=== PATIENT | female | born 2000 | race Caucasian/White ===

== ENCOUNTER 2020-09-13 21:10 | Emergency (ER) | payer SELFPAY ==
--- NOTE | 2020-09-13 21:43 | ER Document Report ---
ED Medical Screen (RME) - General Chief Complaint: Weakness Stated Complaint: WEAKNESS Time Seen by Provider: 09/13/20 21:33 Mode of Arrival: Ambulatory Information source: Patient Notes: HPI; 19-year-old female past medical history significant for anorexia, bulimia, seizure disorder presents to the emergency room complaining of inability to move her extremities with mild confusion that started around 7 PM this evening. Patient states she was alone at the time her symptoms lasted about an hour and a half was able to call a family member who stayed on the phone until her boyfriend got home from work. Patient does not think that she had a seizure but she was alone at the time. Not on any seizure medications. She was not incontinent of urine. Not postictal. No head trauma or head injury. Denies any slurred speech, general weakness or any other symptoms. PE: Alert and oriented x3. Negative fast exam. Lungs: Clear to auscultation without rales, rhonchi, wheezes. Heart: Regular rate rhythm without murmurs, rubs, gallops. I have greeted and performed a rapid initial assessment of this patient. A comprehensive ED assessment and evaluation of the patient, analysis of test results and completion of the medical decision making process will be conducted by additional ED providers. I have specifically instructed the patient or family members with the patient to immediately return to any nursing staff should anything change in the patient's condition or with their chief complaint. TRAVEL OUTSIDE OF THE [place] IN LAST 30 DAYS: No Physical Exam - Vital signs Vitals: Temp Pulse Resp BP Pulse Ox 97.5 F 60 13 102/64 100 09/13/20 21:24 09/13/20 21:24 09/13/20 21:24 09/13/20 21:24 09/13/20 21:24 Course - Vital Signs Vital signs: Temp Pulse Resp BP Pulse Ox 97.5 F 60 13 102/64 100 09/13/20 21:24 09/13/20 21:24 09/13/20 21:24 09/13/20 21:24 09/13/20 21:24
--- NOTE | 2020-09-13 22:19 | RADIOLOGY REPORT (SQ) ---
EXAM DESCRIPTION: CT HEAD WITHOUT IV CONTRAST COMPLETED DATE/TME: 09/13/2020 21:51 CLINICAL HISTORY: 19 years, Female, confusion COMPARISON: None. TECHNIQUE: Axial images without IV contrast. Sagittal coronal reconstruction. Images stored on PACS. All CT scanners at this facility use dose modulation, iterative reconstruction, and/or weight based dosing when appropriate to reduce radiation dose to as low as reasonably achievable (ALARA). FINDINGS: Normal size ventricles. No suspicious acute intra-axial or extra-axial abnormality. Pituitary gland is not enlarged. Paranasal sinuses without acute findings. Unerupted molar teeth bilaterally. Mastoid air cells and bony calvarium are unremarkable. IMPRESSION: 1. Unremarkable intracranial CT. 2. Suspected unerupted molar teeth bilaterally.
[2020-09-13 23:05] LABS: ABSOLUTE EOSINOPHILS # (AUTO) 0.2 10^3/uL (0.0-0.6); ABSOLUTE LYMPHOCYTES (AUTO) 2.5 10^3/uL (0.5-4.7); ABSOLUTE MONOCYTES (AUTO) 0.3 10^3/uL (0.1-1.4); ABSOLUTE NEUT (AUTO) 2.5 10^3/uL (1.7-8.2); EOSINOPHILS % (AUTO) 3.1 % (0-6); HEMATOCRIT 39.6 % (36.0-47.0); HEMOGLOBIN 13.9 g/dL (12.0-15.5); LYMPHOCYTES % (AUTO) 45.3 % (13-45); MEAN CORPUSCULAR HEMOGLOBIN 32.6 pg (27.0-33.4); MEAN CORPUSCULAR HGB CONC 35.2 g/dL (32.0-36.0); MEAN CORPUSCULAR VOLUME 93 fl (80-97); MONOCYTES % (AUTO) 5.8 % (3-13); PLATELET COUNT 251 10^3/uL (150-450); RED BLOOD COUNT 4.28 10^6/uL (3.72-5.28); RED CELL DISTRIBUTION WIDTH 12.9 % (11.5-14.0); SEGMENTED NEUTROPHILS % (AUTO) 45.8 % (42-78); TOTAL CELLS COUNTED % (AUTO) 100 %; WHITE BLOOD COUNT 5.6 10^3/uL (4.0-10.5)
[2020-09-13 23:26] LABS: ALBUMIN 4.6 g/dL (3.5-5.0); ALKALINE PHOSPHATASE 35 U/L (38-126); ANION GAP 6 (5-19); ASPARTATE AMINO TRANSFERASE 24 U/L (14-36); BLOOD UREA NITROGEN 11 mg/dL (7-20); CALCIUM 10.2 mg/dL (8.4-10.2); CARBON DIOXIDE 32 mmol/L (22-30); CHLORIDE 100 mmol/L (98-107); GLUCOSE 88 mg/dL (75-110); POTASSIUM 4.5 mmol/L (3.6-5.0); TOTAL PROTEIN 7.2 g/dL (6.3-8.2)
--- NOTE | 2020-09-13 23:37 | EKG REPORT ---
SEVERITY:- NORMAL ECG - SINUS RHYTHM : Confirmed by: Nathaly Mckinnon 13-Sep-2020 23:36:52
[2020-09-14 05:54] VITALS: BP 90/58
--- NOTE | 2020-09-14 05:55 | ER Document Report ---
ED General - General Chief Complaint: General Weakness Stated Complaint: WEAKNESS Time Seen by Provider: 09/13/20 21:33 Primary Care Provider: [facility] [Provider Group] - Follow up as needed [facility] [Provider Group] - Follow up as needed [facility] [Provider Group] - Follow up as needed [facility] [Provider Group] - Follow up as needed [facility] [Provider Group] - Follow up as needed Mode of Arrival: Ambulatory Information source: Patient Notes: 19-year-old female presented to ED for complaint of having trouble grabbing her pencil or pen for about an hour and a half around 7 PM. She states she was alone at the time and they lasted about an hour and a half and she was able to talk to her mother on the telephone the entire time. She states she had a telephone on the counter while she was talking to her mother. Patient is states that she has had seizures in the past but she did not lose consciousness and she was not incontinent I was able to talk throughout the whole episode. She states she does have a history of seizures that were caused by her anorexia and bulimia. She states she is not having any weakness or any trouble at this time. She is alert oriented able to move all extremities well able to walk with no difficulty. She states this lasted for about an hour and a half and has had no episodes since. Constitutional: Negative for fever. HENT: Negative for sore throat. Eyes: Negative for visual changes. Cardiovascular: Negative for chest pain. Respiratory: Negative for shortness of breath. Gastrointestinal: Negative for abdominal pain, vomiting or diarrhea. Genitourinary: Negative for dysuria. Musculoskeletal: Negative for back pain. Skin: Negative for rash. Neurological: Negative for headaches, weakness or numbness. 10 point ROS negative except as marked above and in HPI. VITAL SIGNS: Within normal limits. GENERAL: Very malnourished female HEAD: Normal with no signs of head trauma. EYES: PERRLA, EOMI, conjunctiva normal, no discharge. EARS: Hearing grossly intact. NOSE: Normal. THROAT: Oropharynx is normal. NECK: Normal range of motion, no tenderness, supple, no lymphadenopathy, No adenopathy, no JVD. CHEST: Clear breath sounds bilaterally. No wheezes, rales, or rhonchi. CARDIAC: Regular rate and rhythm. S1 and S2, without murmurs, gallops, or rubs. VASCULAR: No Edema. Peripheral pulses normal and equal in all extremities. ABDOMEN: Normal and soft with no tenderness, no masses or pulsatile masses. GASTROINTESTINAL: Bowel sounds normal GENITOURINARY: Normal, No tenderness LYMPATHTIC: No lymphadenopathy noted. MUSCULOSKELETAL: Good range of motion of all major joints. Extremities without clubbing, cyanosis or edema. NEUROLOGICAL: Alert and oriented x 3. No focal sensory or strength deficits. Speech normal. Follows commands appropriately. PSYCHIATRIC: Normal Affect, judgement and mood. SKIN: Normal appearance with no rashes or lesions. TRAVEL OUTSIDE OF THE [place] IN LAST 30 DAYS: No - HPI Onset: Yesterday Onset/Duration: Sudden Quality of pain: No pain Severity: None Pain Level: Denies Associated symptoms: Other - States she was not able to move her arms or legs for an hour and a half but she was able to stay on the phone throughout the whole episode Exacerbated by: Denies Relieved by: Denies Similar symptoms previously: Yes Recently seen / treated by doctor: No - Related Data Allergies/Adverse Reactions: Penicillins Allergy (Verified 09/14/20 03:49) Home Medications: CONTROL. CLONAZAPAM Past Medical History - General Information source: Patient - Social History Smoking Status: Never Smoker - Vape Frequency of alcohol use: Occasional Drug Abuse: None Lives with: Spouse/Significant other Family History: Reviewed & Not Pertinent Patient has suicidal ideation: No Patient has homicidal ideation: No - Past Medical History Cardiac Medical History: Reports: None Pulmonary Medical History: Reports: None EENT Medical History: Reports: None Neurological Medical History: Reports: Hx Seizures - Caused by her anorexia and bulimia Endocrine Medical History: Reports: None Renal/ Medical History: Reports: None Malignancy Medical History: Reports: None GI Medical History: Reports: Hx Endoscopy, Other - Anorexia and bulimia Skin Medical History: Reports None Psychiatric Medical History: Reports: Other - Anorexia and bulimia Traumatic Medical History: Reports: None Infectious Medical History: Reports: None Past Surgical History: Reports: Hx Abdominal Surgery - Feeding tube and removal - Immunizations Immunizations up to date: Yes Hx Diphtheria, Pertussis, Tetanus Vaccination: Yes Physical Exam - Vital signs Vitals: Temp Pulse Resp BP Pulse Ox 97.5 F 60 13 102/64 100 09/13/20 21:24 09/13/20 21:24 09/13/20 21:24 09/13/20 21:24 09/13/20 21:24 Course - Vital Signs Vital signs: Temp Pulse Resp BP Pulse Ox 97.5 F 60 13 90/58 L 98 09/13/20 21:24 09/13/20 21:24 09/14/20 05:01 09/14/20 05:00 09/14/20 05:01 - Laboratory Results Result Diagrams: 09/13/20 22:55 09/13/20 22:55 Laboratory Results Interpreted: 09/13/20 09/13/20 22:55 22:55 Lymph % (Auto) 45.3 H Carbon Dioxide 32 H Total Bilirubin 2.0 H Alkaline Phosphatase 35 L Critical Laboratory Results Reviewed: No Critical Results - Radiology Results Critical Radiology Results Reviewed: No Critical Results Discharge - Discharge Clinical Impression: Mental status change resolved Condition: Stable Disposition: HOME, SELF-CARE Additional Instructions: You state you had weakness and unable to hold a pen for an hour and a half but this is all resolved. You states you do have a history of anorexia and bulimia that have caused seizures in the past but this time you did not lose consciousness and you had no seizure activity during this episode. You stated that you are completely resolved you are having no pain or weakness at this time. States you have recently moved to the area and you need a a list of primary care providers and mental health providers. I have given you a list of several primary care groups that you can call to schedule a follow-up appointment and establish care. I have also given you a community outpatient referral list that you can call to help with your mental health issues. Please take your medications as you are prescribed. You are always able to return to the ED if you have any acute symptoms. Your lab work and CT today were negative for any acute changes. I have given you a copy of the CT report and the lab reports. FOLLOW-UP CARE: If you have been referred to a physician for follow-up care, call the physicians office for an appointment as you were instructed or within the next two days. If you experience worsening or a significant change in your symptoms, notify the physician immediately or return to the Emergency Department at any time for re-evaluation. Forms: Smoking Cessation Education Referrals: [facility] [Provider Group] - Follow up as needed [facility] [Provider Group] - Follow up as needed [facility] [Provider Group] - Follow up as needed [facility] [Provider Group] - [facility] [[facility] - Follow up as needed
== END 2020-09-14 06:39 | disposition home or self-care (01) ==
LOC: ER 21:10
DX: R41.82 Altered mental status, unspecified (principal); R53.1 Weakness; F50.89 Other specified eating disorder; Z88.0 Allergy status to penicillin
CPT/HCPCS: 36415; 70450; 80053; 84484; 84703; 85025; 93005; 93010; 99285

== ENCOUNTER 2020-09-18 19:28 | Emergency (ER) | payer SELFPAY ==
[2020-09-18 19:37] VITALS: BP 97/75
--- NOTE | 2020-09-18 19:58 | ER Document Report ---
ED Medical Screen (RME) - General Chief Complaint: Altered Mental Status Stated Complaint: STROKE LIKE SYMPTOMS Time Seen by Provider: 09/18/20 19:44 TRAVEL OUTSIDE OF THE [place] IN LAST 30 DAYS: No - HPI Notes: 09/18/20 19:55 Rapid Medical Exam HPI: This is a 19-year-old female that presents with brief perioral and bilateral hand numbness just prior to arrival. Patient says he was walking upstairs when she felt numbness to her lips and tongue as well as both hands some mild dizziness. This resolved after about 20 minutes. Patient has a history of panic attacks but feels it was not related to this she denies speech changes, confusion, worst headache of her life, facial droop or unilateral extremity weakness or numbness. No history of CVA or TIA. She was recently in the ED last week for weakness and fine motor issues as far as not being able to hold a pencil. She had a negative CAT scan at the time as well as a reassuring work-up. Patient has a history of seizures as well as eating disorders. Says she has had prior electrolyte abnormalities like hypokalemia and phosphorus abnormalities. She denies chest pain shortness of breath abdominal pain nausea vomiting fevers chills or dysuria. Physical Exam: GENERAL: Well-appearing, well-nourished and in no acute distress. HEAD: Atraumatic, normocephalic. ENT: Moist mucous membranes. RESP: Respirations even and unlabored CV- Regular rate. NEURO: No focal neurological deficits. Moves all extremities spontaneously and on command. My involvement in this patients care was limited to a rapid initial assessment. A comprehensive ED assessment and evaluation of the patient, analysis of test results, treatment, and completion of the medical decision making process will be performed by other ER providers. - Related Data Allergies/Adverse Reactions: Penicillins Allergy (Verified 09/18/20 19:45) Home Medications: -CONTROL. KLONIPINE Past Medical History - Social History Frequency of alcohol use: Occasional Drug Abuse: None Neurological Medical History: Reports: Hx Seizures - Caused by her anorexia and bulimia GI Medical History: Reports: Hx Endoscopy Past Surgical History: Reports: Hx Abdominal Surgery - Feeding tube and removal - Immunizations Immunizations up to date: Yes Hx Diphtheria, Pertussis, Tetanus Vaccination: Yes Physical Exam - Vital signs Vitals: Temp Pulse Resp BP Pulse Ox 98.0 F 66 16 97/75 L 98 09/18/20 19:35 09/18/20 19:35 09/18/20 19:35 09/18/20 19:35 09/18/20 19:35 Course - Vital Signs Vital signs: Temp Pulse Resp BP Pulse Ox 98.0 F 66 16 97/75 L 98 09/18/20 19:35 09/18/20 19:35 09/18/20 19:35 09/18/20 19:35 09/18/20 19:35
[2020-09-18 20:19] LABS: ABSOLUTE EOSINOPHILS # (AUTO) 0.1 10^3/uL (0.0-0.6); ABSOLUTE MONOCYTES (AUTO) 0.3 10^3/uL (0.1-1.4); ABSOLUTE NEUT (AUTO) 3.2 10^3/uL (1.7-8.2); BASOPHILS % (AUTO) 0.1 % (0-2); EOSINOPHILS % (AUTO) 2.6 % (0-6); HEMATOCRIT 39.3 % (36.0-47.0); LYMPHOCYTES % (AUTO) 34.9 % (13-45); MEAN CORPUSCULAR HEMOGLOBIN 32.7 pg (27.0-33.4); MEAN CORPUSCULAR HGB CONC 35.7 g/dL (32.0-36.0); MEAN CORPUSCULAR VOLUME 92 fl (80-97); MONOCYTES % (AUTO) 5.7 % (3-13); PLATELET COUNT 257 10^3/uL (150-450); RED BLOOD COUNT 4.29 10^6/uL (3.72-5.28); RED CELL DISTRIBUTION WIDTH 13.2 % (11.5-14.0); SEGMENTED NEUTROPHILS % (AUTO) 56.7 % (42-78); TOTAL CELLS COUNTED % (AUTO) 100 %; WHITE BLOOD COUNT 5.6 10^3/uL (4.0-10.5)
[2020-09-18 20:39] LABS: ALBUMIN 4.8 g/dL (3.5-5.0); ALKALINE PHOSPHATASE 36 U/L (38-126); ANION GAP 9 (5-19); ASPARTATE AMINO TRANSFERASE 25 U/L (14-36); BILIRUBIN,TOTAL 2.2 mg/dL (0.2-1.3); BLOOD UREA NITROGEN 13 mg/dL (7-20); CALCIUM 9.7 mg/dL (8.4-10.2); CARBON DIOXIDE 34 mmol/L (22-30); CHLORIDE 97 mmol/L (98-107); GLUCOSE 124 mg/dL (75-110); PHOSPHORUS 3.7 mg/dL (2.5-4.5); POTASSIUM 3.8 mmol/L (3.6-5.0); TOTAL PROTEIN 7.5 g/dL (6.3-8.2)
== END 2020-09-18 22:29 | disposition left against medical advice (07) ==
LOC: ER 19:28
DX: R41.82 Altered mental status, unspecified (principal); R20.0 Anesthesia of skin; R42 Dizziness and giddiness; E87.6 Hypokalemia; Z88.0 Allergy status to penicillin; Z79.899 Other long term (current) drug therapy; R56.9 Unspecified convulsions; Z53.20 Procedure and treatment not carried out because of patient's decision for unspecified reasons
CPT/HCPCS: 36415; 80053; 83735; 84100; 84443; 85025; 99281